=== PATIENT | female | born 2000 | race Caucasian/White ===

== ENCOUNTER 2025-03-22 20:46 | Inpatient (IN) | payer MEDICAID, SELFPAY ==
[2025-03-22] VITALS (13 sets, daily range): BP systolic 113–139; BP diastolic 63–92; PULSE 65–96; BMI 27.3
[2025-03-22 20:39] LABS: Basophils % 0.3 %; Eosinophils % 0.3 %; Lymphocytes # 2.2 10^3/uL (0.8-4.8); Lymphocytes % 19.2 %; Mean Corpuscular HGB Conc 33.4 g/dL (30-55); Mean Corpuscular Hemoglobin 27.6 pg (27-33); Mean Corpuscular Volume 82.7 fl (85-98); Mean Platelet Volume 11.2 fL (7.4-10.4); Monocytes # 0.7 10^3/uL (0.2-0.9); Monocytes % 6.4 %; Neutrophils # 8.37 10^3/uL (1.8-7.7); Neutrophils % 73.3 %; Nucleated Red Blood Cells % 0 %; Platelet Count 301 10^3/cmm (157-399); Red Blood Count 3.87 10^6/uL (3.85-5.65); Red Cell Distribution Width 15.5 % (12.1-15.1); White Blood Count 11.44 10^3/uL (3.29-11.43)
[2025-03-22] MEDS: sodium chloride 0.9% 1,000 ML 999 ML IV (20:43)
[2025-03-22] MEDS: ampicillin 2,000 MG in sodium chloride 0.9% (plus) 50 ML 100 MG IV (20:43)
--- NOTE | 2025-03-22 20:48 | PM.OPHPUD ---
Labor & Delivery H&P Update Date of Procedure: March 22, 2025 Date H&P Performed: 03/22/25 Changes to previous documentation: The patient arrived to the hospital 8 cm dilated 80% effaced with consistent frequent contractions Admission Diagnosis: 24-year-old 4 para 1-0-2-1 female at 39 weeks estimated gestational age presenting to the hospital in active labor Planned procedure: Spontaneous vaginal delivery Other information: The patient is a 24-year-old female who began having contractions and vaginal pressure earlier today. They progressed, and she presented to the hospital for further evaluation. Upon evaluation she was noted to be 8-1/2 centimeters dilated. She is 80% effaced. -3 station. She received consistent care in her . She had the following findings with lab work. Her blood type is A+. Her antibody screen is negative. She was chlamydia positive and was tested negative posttreatment she was THC positive. She is GBS positive. She is rubella immune. Related Problem List Diagnoses (1) 39 weeks gestation of : (2) Positive GBS test: (3) Marijuana use: A&P Assessment and plan (1) 39 weeks gestation of : I anticipate routine labor. Because she is already progressed substantially, I doubt that we will get 4 hours of antibiotics in prior to delivery. Status: Acute (2) Positive GBS test: Status: Acute (3) Marijuana use: Status: Acute PDMP PDMP Reviewed: Not Reviewed
[2025-03-22 20:52] LABS: Amphetamines Screen Urine Negative (Negative); Barbiturates Screen Urine Negative (Negative); Benzodiazepines Screen Urine Negative (Negative); Cocaine Screen Urine Negative (Negative); Opiate Screen Urine Negative (Negative); PCP Screen Urine Negative (Negative); THC Screen Urine Positive (Negative)
[2025-03-22] MEDS: oxytocin 30 UNIT/500 ML BAG 600 UNIT IV (21:14)
[2025-03-22] MEDS: tranexamic acid 1,000 MG/100 ML PREMIX 600 MG IV (21:45)
--- NOTE | 2025-03-22 21:47 | PM.DELIVERY ---
Delivery Note: Date of delivery: March 22, 2025 Pre-delivery diagnoses: 24-year-old 4 para 1-0-2-1 at 39 weeks estimated gestational age in active labor Post-delivery diagnoses: Status post spontaneous vaginal delivery Procedure: Spontaneous vaginal delivery Delivering Physician: Brad Betancourt Estimated blood loss (mL): 300 Pre-Delivery Course: The patient presented to the hospital at 8 cm dilated and actively contraction. GBS protocol was initiated. She quickly progressed to complete. She had spontaneous rupture of membranes just prior to delivery. Delivery: DELIVERY: The patient progressed to complete without difficulty. She delivered a female with a weight of 3460 with Apgars of 8, 10. The baby was delivered from the OP position and placed on the mother's abdomen. The cord was then clamped and cut. There was a nuchal cord x 1 and a body cord x 1 which reduced after delivery of the baby.. There was light meconium. The placenta and 3 vessel cord were delivered intact shortly thereafter. The perineum and vaginal vault were carefully examined. A superficial first-degree posterior midline tear was noted. Both the mother and the baby were in stable condition. Post-Delivery Status: Good A&P Assessment and plan (1) Spontaneous vaginal delivery: I anticipate routine care (2) 39 weeks gestation of : PDMP PDMP Reviewed: Not Reviewed Coding Level of Care Code Acute Code for Chg Fwd Diagnoses Spontaneous vaginal delivery O80 39 weeks gestation of Z3A.39
[2025-03-23] VITALS (11 sets, daily range): BP systolic 105–129; BP diastolic 59–77; PULSE 64–74; RESP 15–18; TEMP 36.4–36.8; O2SAT 96–100
--- NOTE | 2025-03-23 06:28 | PM.OBGYDC ---
Discharge Providers NREMT Date of Admission: 03/22/25 20:46 Date of Discharge: 03/23/25 Attending Provider at Admission: Brad Betancourt MD Attending Provider at Discharge: Brad Betancourt MD Diagnoses at Discharge Discharge Diagnosis (1) Spontaneous vaginal delivery: Status: Acute (2) 39 weeks gestation of : Status: Acute Reason for Visit Reason for Visit: Contractions Hospital Course Hospital Course The patient presented to the hospital in active labor. She quickly progressed to complete without difficulty and had an unremarkable vaginal delivery of a healthy female . She was GBS positive, and did not receive adequate prophylaxis. Her course was also unremarkable. Her bleeding was within normal limits. Her pain is well-controlled. She bottle-fed her baby. Information Peripartum Data: Infant Delivery Method: Vaginal Physical Exam Narrative: The patient is alert. She appears comfortable. Her heart has a regular rate and rhythm with no murmurs appreciated. Lungs are clear to auscultation bilaterally. Her fundus is firm and below the umbilicus. Discharge Data Studies Completed and Pending Pending at discharge Category Date Time Status Hemagram Timed Lab 03/23/25 09:52 Uncollected Laboratory Results WBC 11.44 10^3/uL (3.29-11.43) H 03/22/25 20: RBC 3.87 10^6/uL (3.85-5.65) 03/22/25 20: Hgb 10.70 g/dL (11.27-16.99) L 03/22/25 20: Hct 32.0 % (36-47) L 03/22/25 20: MCV 82.7 fl (85-98) L 03/22/25 20:25 MCH 27.6 pg (27-33) 03/22/25 20: MCHC 33.4 g/dL (30-55) 03/22/25 20: RDW 15.5 % (12.1-15.1) H 03/22/25 20:25 Plt Count 301 10^3/cmm (157-399) 03/22/25 20:25 MPV 11.2 fL (7.4-10.4) H 03/22/25 20: Neut % (Auto) 73.3 % 03/22/25 20:25 Lymph % (Auto) 19.2 % 03/22/25 20:25 [place] % (Auto) 6.4 % 03/22/25 20:25 Eos % (Auto) 0.3 % 03/22/25 20:25 Baso % (Auto) 0.3 % 03/22/25 20:25 Neut # (Auto) 8.37 10^3/uL (1.8-7.7) H 03/22/25 20:25 Lymph # (Auto) 2.2 10^3/uL (0.8-4.8) 03/22/25 20:25 [place] # (Auto) 0.7 10^3/uL (0.2-0.9) 03/22/25 20:25 Eos # (Auto) 0.0 10^3/uL (0.0-0.8) 03/22/25 20:25 Baso # (Auto) 0.0 10^3/uL (0.0-0.1) 03/22/25 20:25 Nucleated RBC % (auto) 0 % 03/22/25 20:25 Nucleated RBCs # 0.0 /100WBC 03/22/25 20:25 Urine Opiates Screen Negative ng/mL (Negative) 03/22/25 20:25 Ur Barbiturates Screen Negative ng/mL (Negative) 03/22/25 20:25 Ur Phencyclidine Scrn Negative ng/mL (Negative) 03/22/25 20:25 Ur Amphetamines Screen Negative ng/mL (Negative) 03/22/25 20:25 U Benzodiazepines Scrn Negative ng/mL (Negative) 03/22/25 20:25 Urine Cocaine Screen Negative ng/mL (Negative) 03/22/25 20:25 U Marijuana (THC) Screen Positive ng/mL (Negative) H 03/22/25 20:25 Blood Type A Positive 03/22/25 20:25 Rho(D) Type Rh positive 03/22/25 20:25 Antibody Screen Negative 03/22/25 20:25 Vitals Last Vital Signs Temp 98.2 F 03/23/25 05:15 Pulse 71 03/23/25 05:15 Resp 16 03/23/25 05:15 BP 111/64 03/23/25 05:15 Pulse Ox 96 03/23/25 05:15 O2 Del Method Room Air 06/25/25 05:15 Results Labs OB ([facility]): Blood Type A Positive 03/22/25 Antibody Screen Negative 03/22/25 Hct, (36-47) 32.0 % L 03/22/25 Hgb, (11.27-16.99) 10.70 g/dL L 03/22/25 Rho(D) Type Rh positive 03/22/25 Plt Count, (157-399) 301 10^3/cmm 03/22/25 Urine Opiates Screen, (Negative) Negative ng/mL 03/22/25 Ur Barbiturates Screen, (Negative) Negative ng/mL 03/22/25 Ur Phencyclidine Scrn, (Negative) Negative ng/mL 03/22/25 Ur Amphetamines Screen, (Negative) Negative ng/mL 03/22/25 U Benzodiazepines Scrn, (Negative) Negative ng/mL 03/22/25 Urine Cocaine Screen, (Negative) Negative ng/mL 03/22/25 U Marijuana (THC) Screen, (Negative) Positive ng/mL H 03/22/25 Discharge Plan Discharge Patient Disposition: Home Condition: Stable Prescriptions: New ibuprofen 800 mg Tablet 800 mg PO TID Qty: 45 0RF Continued ferrous sulfate [FeroSul] 325 mg (65 mg iron) Tablet 325 mg PO 1XD [id number] 1 mg Tablet 1 tab PO 1XD Discontinued ascorbic acid (vitamin C) [Vitamin C] 500 mg Tablet 500 mg PO 1XD ondansetron 4 mg Tablet,Disintegrating 4 mg PO Q4-5H PRN (Reason: Nausea And Vomiting) Discharge Orders: Discharge Order (Routine); Ordered 03/23/25 Ordered By: Brad Betancourt Referrals: Brad Betancourt MD [Physician, Family Practice] - 6 Weeks Discharge Diet: Usual diet Discharge Activity: Limit activity as instructed Patient Instructions: Opioid Safety, Patient Portal & Saroj Instructions Discharge Attestations NREMT Time Spent in Discharge Care*: less than 30 min Coding Level of Care Code Acute Code for Chg Fwd Diagnoses Spontaneous vaginal delivery O80 39 weeks gestation of Z3A.39
[2025-03-23] MEDS: PRENATAL VIT NO.130/IRON/FOLIC 1 EACH TABLET PO (08:56)
[2025-03-23] MEDS: ibuprofen 800 mg tablet PO (08:56)
[2025-03-23] MEDS: docusate sodium 100 mg Capsule PO (08:56)
[2025-03-23 09:21] LABS: Hematocrit 28.7 % (36-47); Mean Corpuscular HGB Conc 32.8 g/dL (30-55); Mean Corpuscular Hemoglobin 28.1 pg (27-33); Mean Corpuscular Volume 85.7 fl (85-98); Mean Platelet Volume 11.2 fL (7.4-10.4); Platelet Count 228 10^3/cmm (157-399); Red Blood Count 3.35 10^6/uL (3.85-5.65); Red Cell Distribution Width 15.4 % (12.1-15.1); White Blood Count 13.51 10^3/uL (3.29-11.43)
== END 2025-03-23 20:47 | disposition home or self-care (01) | DRG 807 ==
LOC: OPOB 20:46 → OBGYN 20:46
PROVIDERS: Admitting Provider Family Medicine; Visit Provider Family Medicine
DX: O99.824 Streptococcus B carrier state complicating childbirth (principal); Z37.0 Single live birth; O99.324 Drug use complicating childbirth; F12.90 Cannabis use, unspecified, uncomplicated; O69.81X0 Labor and delivery complicated by cord around neck, without compression, not applicable or unspecified; O77.0 Labor and delivery complicated by meconium in amniotic fluid; O70.0 First degree perineal laceration during delivery; Z3A.39 39 weeks gestation of pregnancy
CPT/HCPCS: 36415; 59025; 59409; 80306; 85025; 85027; 86850; 86900; 99211; J0290; J2590; J7030; J9999